=== PATIENT | female | born 1960 | race Caucasian/White ===

== ENCOUNTER 2017-10-24 05:55 | Day surgery (SDC) | payer OTHER ==
[2017-10-24] MEDS ORDERED: MIDAZOLAM 1 MG/ML 2 ML INJ (07:51)
[2017-10-24] MEDS ORDERED: LIDOCAINE 2% (SDV) 5 ML INJ (07:51)
[2017-10-24] MEDS ORDERED: PROPOFOL 20 ML (07:51)
== END 2017-10-24 11:25 | disposition home or self-care (01) ==
LOC: GIL 05:55
DX: Z12.11 Encounter for screening for malignant neoplasm of colon (principal); K57.90 Diverticulosis of intestine, part unspecified, without perforation or abscess without bleeding; K64.8 Other hemorrhoids; K63.5 Polyp of colon
CPT/HCPCS: 45380; 88305